=== PATIENT | female | born 1960 | race Caucasian/White ===

== ENCOUNTER → 2019-09-10 13:08 | Outpatient (CLI) | payer OTHER, SELFPAY ==
--- NOTE | 2019-09-10 13:11 | DI.US.S_ITS ---
PROCEDURE: US ABDOMEN COMPLETE INDICATIONS: POLYCYTHEMIA TECHNIQUE: Real-time scanning was performed of the abdominal and retroperitoneal organs, with image documentation. COMPARISON: None. FINDINGS: Liver: Liver is diffusely increased in echogenicity. No focal hepatic abnormalities identified. Normal hepatic size. Gallbladder: Paracolic cystectomy. Biliary ducts: Intrahepatic bile ducts are non-dilated. Extrahepatic bile duct not well-seen. Pancreas: Visualized portions of the pancreas are sonographically normal. Spleen: Spleen is normal in size and homogeneous in echotexture. Kidneys: Kidneys are normal in size and echotexture. Right kidney measures 11.7 cm long; left kidney measures 11.8 cm long. No hydronephrosis or nephrolithiasis. No solid masses. Aorta: Visualized aorta is normal in caliber at less than 3 cm. Iliacs: Not well-visualized. IVC: Intrahepatic inferior vena cava is patent. Miscellaneous: No free abdominal fluid. IMPRESSION: 1. Increased hepatic echogenicity noted possibly related to hepatic steatosis but other sources of hepatocellular disease cannot be excluded. Recommend clinical correlation. Dictated by: John Faulkner [facility] Interpreted: Juan Carlos Hankins MD on 09/10/2019 at 14:52 Approved by: Juan Carlos Hankins M.D. on 09/10/2019 at 17:23
== END ==
PROVIDERS: Visit Provider Internal Medicine Hematology & Oncology
DX: D75.1 Secondary polycythemia (principal)
CPT/HCPCS: 76700

== ENCOUNTER → 2019-11-24 09:59 | Outpatient (CLI) | payer OTHER, SELFPAY ==
[2019-11-24 10:16] LABS: Add Manual Diff / Slide Review NO; Basophils Absolute Auto 100 /uL (0-100); Basophils Percent Auto 1.3 % (0-2); Eosinophils Absolute Auto 500 /uL (0-450); Eosinophils Percent Auto 4.3 % (2-4); Hematocrit 53.9 % (36-46); Hemoglobin 17.6 g/dL (12.0-16.0); Lymphocytes Absolute Auto 1600 /uL (1100-4500); Lymphocytes Percent Auto 15.3 % (25-40); Mean Corpuscular HGB Conc 32.7 % (30-36); Mean Corpuscular Hemoglobin 28.5 PG (26-34); Mean Corpuscular Volume 87.3 fL (80-100); Monocytes Absolute Auto 600 /uL (0-900); Neutrophils Absolute Auto 7800 /uL (1500-7000); Neutrophils Percent Auto 73.1 % (50-75); Platelet Count 411 X10^3/uL (150-400); Red Blood Cell Count 6.17 X10^6/uL (4.0-5.2); White Blood Cell Count 10.7 X10^3/uL (4.5-11.0)
[2019-11-24 10:51] LABS: 585 Gram Check PASS; Dizziness NO; Postdiastolic BP 101; Postsystolic BP 145; Prediastolic 85; Presystolic 145; Pulse 90; Site of phlebotomy LAC; Swelling NO; Therapeutic Phleb Comment NO COMMENT; Zero Check Sebra Scale PASS
== END ==
PROVIDERS: Family Provider Internal Medicine; PCP Internal Medicine; Referring Provider Internal Medicine Hematology & Oncology; Visit Provider Internal Medicine Hematology & Oncology
DX: D45 Polycythemia vera (principal); D75.1 Secondary polycythemia
CPT/HCPCS: 36415; 85025; 99195

== ENCOUNTER → 2019-11-30 12:37 | Outpatient (CLI) | payer OTHER, SELFPAY ==
[2019-11-30 13:27] LABS: Add Manual Diff / Slide Review NO; Basophils Absolute Auto 200 /uL (0-100); Basophils Percent Auto 1.5 % (0-2); Eosinophils Absolute Auto 600 /uL (0-450); Eosinophils Percent Auto 5.1 % (2-4); Hematocrit 53.2 % (36-46); Hemoglobin 17.4 g/dL (12.0-16.0); Lymphocytes Absolute Auto 1500 /uL (1100-4500); Lymphocytes Percent Auto 12.6 % (25-40); Mean Corpuscular HGB Conc 32.8 % (30-36); Mean Corpuscular Hemoglobin 28.4 PG (26-34); Mean Corpuscular Volume 86.7 fL (80-100); Monocytes Absolute Auto 600 /uL (0-900); Monocytes Percent Auto 5.3 % (3-14); Neutrophils Absolute Auto 8900 /uL (1500-7000); Neutrophils Percent Auto 75.5 % (50-75); Platelet Count 465 X10^3/uL (150-400); Red Blood Cell Count 6.13 X10^6/uL (4.0-5.2); Red Cell Distribution Width 15.5 % (11.6-14.8); White Blood Cell Count 11.7 X10^3/uL (4.5-11.0)
[2019-11-30 13:35] LABS: Alanine Aminotransferase 19 IU/L (<35); Albumin 4.6 g/dL (3.5-5.0); Albumin Globulin Ratio 1.3 (1.0-2.8); Alkaline Phosphatase 107 U/L (38-126); Aspartate Aminotransferase 26 IU/L (14-36); BUN Creatinine Ratio 21.3 (6-22); Bilirubin Total 0.5 mg/dL (0.2-1.3); Blood Urea Nitrogen 17 mg/dL (7-17); Calcium 10.1 mg/dL (8.4-10.2); Carbon Dioxide 27 mmol/L (22-32); Chloride 105 mmol/L (98-107); Estimated Glomerular Filt Rate > 60.0 mL/min (>60); Globulin 3.5 g/dL (1.7-4.1); Glucose 108 mg/dL (80-110); HEMOLYSIS < 15 (0-50); Potassium 4.1 mmol/L (3.4-5.1); Sodium 142 mmol/L (137-145); Total Protein 8.1 g/dL (6.3-8.2)
== END ==
PROVIDERS: Family Provider Internal Medicine; PCP Internal Medicine; Referring Provider Internal Medicine Hematology & Oncology; Visit Provider Internal Medicine Hematology & Oncology
DX: D75.1 Secondary polycythemia (principal)
CPT/HCPCS: 36415; 80053; 85025

== ENCOUNTER → 2019-12-08 10:06 | Outpatient (CLI) | payer OTHER, SELFPAY ==
[2019-12-08 10:37] LABS: 585 Gram Check PASS; Prediastolic 77; Presystolic 126; Pulse 86; Zero Check Sebra Scale PASS
[2019-12-08 10:38] LABS: Dizziness NO; Postdiastolic BP 91; Postsystolic BP 134; Site of phlebotomy LAC; Swelling NO; Therapeutic Phleb Comment NO COMMENT
== END ==
PROVIDERS: Family Provider Internal Medicine; PCP Internal Medicine; Referring Provider Internal Medicine Hematology & Oncology; Visit Provider Internal Medicine Hematology & Oncology
DX: D45 Polycythemia vera (principal)
CPT/HCPCS: 99195

== ENCOUNTER → 2019-12-30 09:59 | Outpatient (CLI) | payer OTHER, SELFPAY ==
[2019-12-30 10:18] LABS: Hematocrit 41.4 % (36-46)
== END ==
PROVIDERS: Family Provider Internal Medicine; PCP Internal Medicine; Referring Provider Internal Medicine Hematology & Oncology; Visit Provider Internal Medicine Hematology & Oncology
DX: D45 Polycythemia vera (principal)
CPT/HCPCS: 36415; 85014

== ENCOUNTER → 2020-11-17 09:34 | Outpatient (CLI) | payer OTHER, SELFPAY ==
--- NOTE | 2020-11-17 09:35 | DI.US.S_ITS ---
PROCEDURE: US ABDOMEN COMPLETE INDICATIONS: POLYCYTHEMIA VERA - ?SPLENOMEGALY TECHNIQUE: Real-time scanning was performed of the abdominal and retroperitoneal organs, with image documentation. COMPARISON: [facility], US, US ABDOMEN COMPLETE, 09/10/2019, 13:20. FINDINGS: Liver: Liver is normal in size and homogeneous in echotexture. The main portal vein measures 14 mm, with normal appearing, hepatopetal flow. Gallbladder: Has been removed. Biliary ducts: Intrahepatic bile ducts are non-dilated. Extrahepatic bile duct caliber measures 4 mm. Normal is 6-7 mm or less in diameter, or 10 mm or less post-cholecystectomy. Pancreas: Visualized portions of the pancreas are sonographically normal. Spleen: Spleen is normal in size and homogeneous in echotexture, measuring 12.6 cm, with a calculated splenic volume of 368 cc. Kidneys: Kidneys are normal in size and echotexture. Right kidney measures 11.4 cm long; left kidney measures 12.8 cm long. No hydronephrosis or nephrolithiasis. No solid masses. Aorta: Visualized aorta is normal in caliber at less than 3 cm. Iliacs: Proximal common iliac arteries are normal in caliber at less than 2.5 cm. IVC: Intrahepatic inferior vena cava is patent. Miscellaneous: No free abdominal fluid. IMPRESSION: Spleen near the upper limits of normal for size. Status post cholecystectomy, without biliary dilatation. Dictated by: Gadiel Hernandez M.D. on 11/17/2020 at 10:10 Approved by: Gadiel Hernandez M.D. on 11/17/2020 at 10:11
== END ==
PROVIDERS: Family Provider Internal Medicine; PCP Internal Medicine; Referring Provider Internal Medicine Hematology & Oncology; Visit Provider Internal Medicine Hematology & Oncology
DX: D45 Polycythemia vera (principal); Z90.49 Acquired absence of other specified parts of digestive tract
CPT/HCPCS: 76700

== ENCOUNTER → 2022-05-28 09:29 | Outpatient (CLI) | payer OTHER, SELFPAY ==
[2022-05-28 11:15] LABS: COVID19 -Nasal RAPID Negative (Negative)
== END ==
PROVIDERS: Family Provider Internal Medicine; PCP Internal Medicine; Visit Provider Surgery
DX: Z20.822 Contact with and (suspected) exposure to COVID-19 (principal); Z01.812 Encounter for preprocedural laboratory examination
CPT/HCPCS: 87635; C9803

== ENCOUNTER 2022-05-29 09:54 | Day surgery (SDC) | payer OTHER, SELFPAY ==
[2022-05-29] VITALS (8 sets, daily range): BP systolic 118–155; BP diastolic 71–90; PULSE 72–101; RESP 12–21; TEMP 36.2–36.8; O2SAT 93–98; BMI 25.9
--- NOTE | 2022-05-29 | PATH_ITS ---
[facility] Accession Number: [id number] . 01 Material submitted: . rectum - RECTAL POLYP . 01 Diagnosis: Rectum, Polyp, Biopsy: Hyperplastic polyp. JNL 05/30/2022 1235 Local . 01 Electronically signed: . Mayte Hoang MD, Pathologist NPI- [id number] . 01 Gross description: . RECTAL POLYP: Received in formalin is 1 fragment(s) of christianson, soft tissue measuring 0.4 x 0.4 x 0.2 cm submitted entirely in 1 cassette(s) /CLAY 05/30/2022 0051 Local . 01 Pathologist provided ICD-10: K62.1 . 01 CPT . 491416 Specimen Comment: A courtesy copy of this report has been sent to [phone] Performed at: 01 [facility] [address] [place] [id number] MD David Perez MD Phone: [phone]
--- NOTE | 2022-05-29 10:08 | PM.HP.1 ---
History of Present Illness History of Present Illness Date Patient Seen: 05/29/22 Time Patient Seen: 10:08 Chief complaint: SDC Narrative: 62-year-old woman here for diagnostic colonoscopy secondary to a history of anemia. She is feeling well today without complaint. Please refer to the H& P from March 2022 for further detail. Patient History Medical History Anxiety Depression Hypertension Hypothyroidism Migraine SVT (supraventricular tachycardia) Surgical History History of History of carpal tunnel release of both wrists History of cholecystectomy History of radiofrequency ablation (RFA) procedure for cardiac arrhythmia History of tonsillectomy Family & Social History Family History Sister Multiple myeloma Mother Breast cancer Father Asthma Tobacco & Substance use: Smoking Status Former smoker alcohol intake former Meds Home Medications and Allergies Home Medications Medication Instructions Recorded Confirmed Type Vitamin D3 1,000 unit DAILY 08/13/19 05/07/22 History ascorbic acid (vitamin C) 1,000 mg 1,000 mg PO DAILY 08/13/19 05/29/22 History tablet,extended release (Vitamin C ER) carboxymethylcellulose sodium 0.5 1 drp DAILY 08/13/19 05/29/22 History % eye drops in a dropperette (Refresh Plus) levothyroxine 25 mcg tablet 25 mcg DAILY 08/13/19 05/29/22 History (Synthroid) lutein 20 mg capsule 20 mg PO DAILY 08/13/19 05/29/22 History rizatriptan 10 mg disintegrating 10 mg PO Q2-4H PRN Headache 08/13/19 05/29/22 History tablet (Maxalt-PROFESSIONAL ATHLETES COACH) thyroid (pork) 60 mg tablet 60 mg PO DAILY 08/13/19 05/29/22 History (Reading Thyroid) aspirin 81 mg chewable tablet 81 mg PO DAILY 08/08/20 05/29/22 History ibuprofen 600 mg tablet 600 mg PO Q6H PRN Pain, Mild 08/08/20 05/29/22 History potassium chloride 40 mEq/L in 365 meq DAILY 08/08/20 05/29/22 History dextrose 5 %-0.45 % sodium chloride IV topiramate 25 mg tablet 50 mg PO BID 08/08/20 05/29/22 History magnesium 500 mg tablet 15 mg PO DAILY 10/05/21 05/29/22 History vitamin K2 45 mcg capsule 90 mcg PO DAILY 12/28/21 05/07/22 History levocetirizine 5 mg tablet 5 mg PO DAILY 05/07/22 05/29/22 History Allergies Allergy/AdvReac Type Severity Reaction Status Date / Time codeine Allergy Unknown Verified 05/29/22 10:00 Exam Narrative Exam Narrative: General adult woman alert oriented no acute distress Chest nonlabored respiration Abdomen soft nontender nondistended Assessment & Plan Assessment and plan (1) Iron deficiency anemia: Qualifiers: Iron deficiency anemia type: unspecified iron deficiency Qualified Code(s): D50.9 - Iron deficiency anemia, unspecified Status: Acute Assessment & Plan narrative: 62-year-old woman with anemia here for diagnostic colonoscopy. Technical details of the operation were discussed. Operative risks including bleeding, infection, intestinal perforation, missed diagnosis were discussed. Questions have been answered and they are in agreement with this plan. Time Spent With Patient Critical Care time: I spent a total of [] minutes of critical care time on this patient's care today; this time is exclusive of procedural time.
[2022-05-29] MEDS: LACTATED RINGERS 1,000 ML 200 ML IV (10:18)
--- NOTE | 2022-05-29 10:52 | PM.OP.COLON ---
Operative Date/Time/Diagnoses Date of procedure: 05/29/22 Time of procedure: 10:52 Pre-op diagnosis: Anemia Post-op diagnosis: same Procedure & Clinicians Study performed: Colonoscopy Same procedure as scheduled: Yes Indications: Anemia Surgeon: Mustapha Green Procedure Notes Procedure in detail: Medications: Conscious sedation using 5mg IV midazolam and 150mcg IV of fentanyl The history and physical was performed/updated and the patient is ASA class is 2. The procedure was discussed in detail with the patient. Potential risks complications including infection, bleeding, missed diagnosis, perforation, need for surgery, and were explained. Their questions were answered and informed consent was obtained. Patient was brought to the procedure room and placed standard monitoring equipment. The patient's vital signs were monitored continuously throughout the entire procedure. Prior to starting time-out was performed. The patient was placed in the left lateral recumbent position. Procedural sedation was administered. Examination began with a thorough inspection of the perianal area there was no evidence of fissures, fistulae, external hemorrhoids or cutaneous malignancy. The colonoscopy scope was then placed into the anal canal and was advanced to the cecum, which was identified by the ileocecal valve, the appendiceal orifice and the confluence of the taenia. The scope was then slowly withdrawn examining colon thoroughly in all directions, irrigating it of any residual stool. FINDINGS 1. Rectal-5 mm polyp in the mid rectum removed with biopsy forceps 2. Tortuous colon 3. No colonic masses The patient tolerated the procedure well. They will be discharged once criteria are met. The prep was of good/excellent quality. The withdrawl time was 6 minutes. The sedation time was 24 minutes. Specimen(s): other (Rectal polyp) Complications: none Impression: Colonic polyp Post-procedure Recommendations: Colonoscopy in 5 years
[2022-05-29] MEDS: fentaNYL 250 MCG/5 ML INJ IV (10:54)
[2022-05-29] MEDS: MIDAZOLAM 5 MG/5 ML VIAL IV (10:54)
== END 2022-05-29 11:44 | disposition home or self-care (01) ==
PROVIDERS: Family Provider Internal Medicine; PCP Student in an Organized Health Care Education/Training Program; Referring Provider Surgery; Visit Provider Surgery
PROC: 0DJD8ZZ Inspection of Lower Intestinal Tract, Via Natural or Artificial Opening Endoscopic (ICD-10-PCS; CPT 45378; principal; 2022-05-29 10:30)
DX: D50.9 Iron deficiency anemia, unspecified (principal); K62.1 Rectal polyp
CPT/HCPCS: 45380; 99152; 99153; J2250; J3010

== ENCOUNTER 2022-07-06 07:04 | Emergency (ER) | payer OTHER, SELFPAY ==
[2022-07-06] VITALS (9 sets, daily range): BP systolic 121–177; BP diastolic 61–90; PULSE 82–90; RESP 18; TEMP 36.6; O2SAT 93–98; BMI 25.0
--- NOTE | 2022-07-06 07:29 | ED.HA ---
HPI - Headache General Chief Complaint: Headache Stated Complaint: migraine Time Seen by Provider: 07/06/22 07:16 Source: patient Mode of arrival: Ambulatory Limitations: no limitations History of Present Illness HPI Narrative: Patient is a 62-year-old female who is here with evaluation of a migraine headache. She has had migraine headaches in the past. She has been to the emergency department before for her headaches however has been several years ago. States that yesterday approximately 1100 hours in the morning she had the onset of the headache. It feels like 1 of her prior migraines. She does take a preventative migraine medication and also has abortive medicines as well. She took those yesterday and has not improved any of her symptoms. She is having subjective fevers. Has full body aches. No chest pain. No shortness of breath. Is having nausea but no vomiting. No rashes. No other neurologic symptoms. She did recently have an iron infusion for PCV. Also is having photophobia Related Data Home Medications Medication Instructions Recorded Confirmed Vitamin D3 1,000 unit DAILY 08/13/19 06/18/22 ascorbic acid (vitamin C) 1,000 mg 1,000 mg PO DAILY 08/13/19 06/18/22 tablet,extended release (Vitamin C ER) carboxymethylcellulose sodium 0.5 1 drp DAILY 08/13/19 06/18/22 % eye drops in a dropperette (Refresh Plus) levothyroxine 25 mcg tablet 25 mcg DAILY 08/13/19 06/18/22 (Synthroid) lutein 20 mg capsule 20 mg PO DAILY 08/13/19 06/18/22 rizatriptan 10 mg disintegrating 10 mg PO Q2-4H PRN Headache 08/13/19 06/18/22 tablet (Maxalt-UTILITY BILL COLLECTION CLERK) thyroid (pork) 60 mg tablet 60 mg PO DAILY 08/13/19 06/18/22 ([place] Thyroid) aspirin 81 mg chewable tablet 81 mg PO DAILY 08/08/20 06/18/22 ibuprofen 600 mg tablet 600 mg PO Q6H PRN Pain, Mild 08/08/20 06/18/22 potassium chloride 40 mEq/L in 365 meq DAILY 08/08/20 06/18/22 dextrose 5 %-0.45 % sodium chloride IV topiramate 25 mg tablet 50 mg PO BID 08/08/20 06/18/22 magnesium 500 mg tablet 15 mg PO DAILY 10/05/21 06/18/22 vitamin K2 45 mcg capsule 90 mcg PO DAILY 12/28/21 06/18/22 levocetirizine 5 mg tablet 5 mg PO DAILY 05/07/22 06/18/22 guaifenesin 600 mg tablet, 1,200 mg PO BID 06/18/22 06/18/22 extended release 12 hr (Mucinex) Allergies Allergy/AdvReac Type Severity Reaction Status Date / Time codeine Allergy Unknown Verified 05/29/22 10:00 Review of Systems Review of Systems ROS Unobtainable: All systems reviewed & are unremarkable except as noted in HPI and below Patient History Medical History Anxiety Depression Hypertension Hypothyroidism Migraine SVT (supraventricular tachycardia) Surgical History History of History of carpal tunnel release of both wrists History of cholecystectomy History of radiofrequency ablation (RFA) procedure for cardiac arrhythmia History of tonsillectomy Family History Sister Multiple myeloma Mother Breast cancer Father Asthma Social History household members: spouse Smoking Status: Former smoker alcohol intake: former substance use type: does not use Smoking Status: Former smoker Substance Use Type: does not use Exam Initial Vital Signs Initial Vital Signs: Vital Signs Temperature 97.8 F 07/06/22 07:05 Pulse Rate 89 07/06/22 07:05 Respiratory Rate 18 07/06/22 07:05 Blood Pressure 177/90 H 07/06/22 07:05 Pulse Oximetry 98 07/06/22 07:05 Oxygen Delivery Method 07/06/22 07:05 Const General: cooperative and comfortable HENMT Head: normal to inspection and normocephalic Resp Effort & Inspection: normal respiratory effort Auscultation: clear to auscultation bilaterally Cardio Rate: regular rate Rhythm: regular rhythm Heart Sounds: murmur GI Inspection: normal to inspection Skin General: no rashes or lesions noted Neuro General: patient alert, patient awake and moves all extremities Cognition: normal cognition Speech: speech normal Extrem General: normal to inspection, capillary refill normal and No edema Psych Appearance: grossly normal and well kempt Course Orders Ordered: Discontinued Medications Acetaminophen (Acetaminophen 325 Mg Tablet) 975 mg PO NOW ONE Stop: 07/06/22 07:33 Last Admin: 07/06/22 07:54 Dose: 975 mg Documented By: RB Diphenhydramine HCl (Diphenhydramine 50 Mg/Ml Vial) 25 mg IV NOW ONE Stop: 07/06/22 07:33 Last Admin: 07/06/22 07:53 Dose: 25 mg Documented By: RB Hydromorphone HCl (Hydromorphone 0.5 Mg Inj) 0.5 mg IV NOW ONE Stop: 07/06/22 10:36 Last Admin: 07/06/22 10:46 Dose: 0.5 mg Documented By: RB Sodium Chloride (Normal Saline 0.9%) 1,000 mls @ 1,000 mls/hr IV BOLUS ONE Stop: 07/06/22 08:31 Last Infusion: 07/06/22 09:56 Dose: 0 mls/hr Documented By: Admin: 07/06/22 07:53 Dose: 1,000 mls/hr Documented By: RB Ketorolac Tromethamine (Ketorolac 30 Mg/Ml Vial) 30 mg IV NOW ONE Stop: 07/06/22 09:25 Last Admin: 07/06/22 09:50 Dose: 30 mg Documented By: RB Metoclopramide HCl (Metoclopramide 10 Mg/2 Ml Inj) 10 mg IV NOW ONE Stop: 07/06/22 07:33 Last Admin: 07/06/22 07:53 Dose: 10 mg Documented By: RB Vital Signs Vital signs: Vital Signs - 8 hr 07/06/22 07:05 07/06/22 07:18 07/06/22 07:30 Temperature 97.8 F Pulse Rate 89 85 Respiratory Rate 18 Blood Pressure 177/90 H 156/74 H Pulse Oximetry 98 97 Oxygen Delivery Method Room Air 07/06/22 07:30 07/06/22 10:17 07/06/22 10:18 Temperature Pulse Rate 82 90 Respiratory Rate Blood Pressure 125/62 Pulse Oximetry 94 96 Oxygen Delivery Method 07/06/22 10:18 07/06/22 10:51 07/06/22 11:00 Temperature Pulse Rate 86 86 Respiratory Rate Blood Pressure 130/66 Pulse Oximetry 96 96 Oxygen Delivery Method 07/06/22 11:00 07/06/22 11:15 07/06/22 11:15 Temperature Pulse Rate 84 83 Respiratory Rate Blood Pressure 121/63 Pulse Oximetry 93 94 Oxygen Delivery Method MDM - Headache MDM Narrative Medical decision making narrative: Patient states she does feel better after above treatments. I have low suspicion for subarachnoid hemorrhage, meningitis or other acute surgical or infectious pathology given her history and physical. Will discharge her home and she did take her normal medications. She was given return precautions. She expressed understanding and agreement. Discharge Plan Departure Patient Disposition: Home Clinical Impression: Migraine Instructions: DI for Migraine Activity Restrictions/Additional Instructions: Recommend that you talk with your primary doctor about your headaches and continue to take all of your medications as directed. Return to the emergency department for any new or worsening symptoms. Prescriptions: No Action Vitamin C 1,000 mg Tablet Extended Release 1,000 mg PO DAILY levothyroxine [Synthroid] 25 mcg Tablet 25 mcg DAILY rizatriptan [Maxalt-UTILITY BILL COLLECTION CLERK] 10 mg Tablet,Disintegrating 10 mg PO Q2-4H PRN (Reason: Headache) carboxymethylcellulose sodium [Refresh Plus] 0.5 % Dropperette 1 drp DAILY lutein 20 mg Capsule 20 mg PO DAILY thyroid (pork) [[place] Thyroid] 60 mg Tablet 60 mg PO DAILY Vitamin D3 1,000 unit DAILY potassium [id number]%NaCl 40 mEq/L Parenteral Solution 365 meq DAILY topiramate 25 mg Tablet 50 mg PO BID aspirin 81 mg Tablet,Chewable 81 mg PO DAILY ibuprofen 600 mg Tablet 600 mg PO Q6H PRN (Reason: Pain, Mild) magnesium 500 mg Tablet 15 mg PO DAILY vitamin K2 45 mcg Capsule 90 mcg PO DAILY levocetirizine 5 mg Tablet 5 mg PO DAILY guaifenesin [Mucinex] 600 mg Tablet Extended Release 12hr 1,200 mg PO BID Referrals: Jaylan Suggs DO [Primary Care Provider] -
[2022-07-06] MEDS: diphenhydrAMINE 50 MG/ML VIAL 25 MG IV (07:53)
[2022-07-06] MEDS: METOCLOPRAMIDE 10 MG/2 ML INJ IV (07:53)
[2022-07-06] MEDS: SODIUM CHLORIDE 0.9% 1,000 ML 1000 ML IV (07:53)
[2022-07-06] MEDS: ACETAMINOPHEN 325 MG TABLET 975 MG PO (07:54)
[2022-07-06] MEDS: KETOROLAC 30 MG/ML VIAL IV (09:50)
[2022-07-06] MEDS: HYDROMORPHONE 0.5 MG INJ IV (10:46)
== END 2022-07-06 11:58 | disposition home or self-care (01) ==
PROVIDERS: Emergency Provider Emergency Medicine; Family Provider Internal Medicine; PCP Student in an Organized Health Care Education/Training Program
DX: G43.909 Migraine, unspecified, not intractable, without status migrainosus (principal)
CPT/HCPCS: 36415; 96361; 96374; 96375; 99284; J1170; J1200; J1885; J2765

== ENCOUNTER → 2023-04-02 13:45 | Outpatient (CLI) | payer MEDICARE, OTHER, SELFPAY ==
--- NOTE | 2023-04-02 | DI.RAD.S_ITS ---
PROCEDURE: FL BARIUM SWALLOW W SPEECH INDICATIONS: Unspecified foreign body in respiratory tract COMPARISON: None. TECHNIQUE: Examination was conducted in conjunction with speech pathology per standard protocol. In the lateral projection, filming was performed of the patient swallowing. AP projection filming may also be performed with patient swallowing. COMPARISON: FINDINGS: Function: The oral preparatory phase appears normal, with proper containment. The subsequent oral propulsive phase, pharyngeal phase, and esophageal phase of swallowing also appear normal with all proffered substances. No laryngotracheal penetration or aspiration. No pathologic vallecular pooling. Morphology: No cricopharyngeal bar is identified. No cervical esophageal webs. No Zenker's diverticulum. No strictures. IMPRESSION: Normal study. Please correlate with speech pathology notes. Dictated by: Juan Carlos Hankins M.D. on 04/02/2023 at 16:37 Approved by: Juan Carlos Hankins M.D. on 04/02/2023 at 16:37
--- NOTE | 2023-04-02 18:54 | ST.SWALLOW ---
Visit Care Team Role Provider Type Jaylan Suggs DO Primary Care Provider Non-Staff Specialty: Family Practice Address: [facility] [place], [address] Email: Brenda Baker DO Attending Provider Non-Staff Referring Provider Specialty: Medical Address: [address] [place] [address], [id number] Fax: Email: ST Modified Barium Swallow Study MANAGER [address] Modified Barium Swallow Study Start: 04/02/23 17:39 Freq: Status: Active Protocol: Document 04/02/23 17:40 LNK (Rec: 04/02/23 18:53 LNK [id number]) Modified Barium Swallow Study Total Time Visit Start Time 14:45 Visit Stop Time 15:15 Total Visit Minutes [address] Baker Reason for Referral chronic cough Setting Setting Outpatient Care Patient Information Identification Type Name,Date of Patient History Pt was seen for a Modified Barium Swallow Study secondary to chronic cough and respiratory problems over the past 4 years (since 2019). Pt reported that she has had a sensation of heaviness and struggles to breath when she eats/drinks. She stated there is an audible inhalation and exhalation and a gurgling sensation. Her cough is wet and she reports that recently she had a bronchoscopy where mucous was suctioned from her lungs, after which she felt better. She has a history of a hiatal hernia and funduplication. Subjective Observations Pt appeared to be anxious as she described her medical history. She was seated in the fluoroscopy chair. Directions and procedures were described for her. Pt agreed to proceed . Patient Positioning Position View Lat-A/P Imaging Lateral View Textures Administered Trials Presented Thin Liquid via Spoon (IDDSI 0 ),Thin Liquid via Cup (IDDSI 0 ),Extremely Thick Liquid via Spoon (IDDSI 4),Regular (IDDSI 7) Barium Tablet Yes The IDDSI Framework Protocol: IDDSI.1 Oral Impairment Source: The Modified Barium Swallow Impairment Profile (MBSImP??) Lip Closure No labial escape Tongue Control During Bolus Hold Cohesive bolus between tongue to palatal seal Bolus Preparation/Mastication Timely & efficient chewing & mashing Bolus Transport/Lingual Motion Brisk tongue motion Oral Residue Trace residue lining oral structures Location Tongue Initiation of Pharyngeal Swallow Bolus head at posterior angle of ramus (first hyoid excursion) Additional Oral Impairment Observations Pt's OME was observed to be WNL for form and function. DKS was also WNL. Oral phase o9f swallow was noted to be WNL Pharyngeal Impairment Source: The Modified Barium Swallow Impairment Profile (MBSImP??) Soft Palate Elevation No bolus between soft palate & pharyngeal wall Laryngeal Elevation Comp.sup.move.thyroid cart.w/ comp.approx.arytenoids to epiglot petiole Anterior Hyoid Excursion Complete anterior movement Epiglottic Movement Complete inversion Laryngeal Vestibular Closure Complete; no air/contrast in laryngeal vestibule Pharyngeal Stripping Wave Present - complete Pharyngoesophageal Segment Opening Complete distention & complete duration; no obstruction of flow Tongue Base Retraction Trace column of contrast/air between tongue base & post. pharyngeal wall Pharyngeal Residue Collection of residue within/ on pharyngeal structures Location Pyriform sinuses Additional Pharyngeal Impairment Pharyngeal phase of swallow Observations was observed to be WNL. Pharyngeal pooling was observed in the valeculla and the pyriform sinuses. Subsequent swallows following initial trial swallowing was observed to clear pharyngeal pooling. No laryngeal penetration or tracheal aspiration was observed. A/P View Textures Administered Trials Presented Thin Liquid via Spoon (IDDSI 0 ) The IDDSI Framework Protocol: IDDSI.1 A/P View Observations Pharyngeal Contraction Complete Esophageal Clearance Upright Position Complete clearance; esophageal coating Esophageal Function WFL Clinical Impressions Dysphagia Type WNL Findings pt presented with a swallow that was WNL Patient Appropriate for Therapy No Recommendations Diet Liquids Order Thin (IDDSI 0) Diet Order Regular (IDDSI 7) Medication Recommendation As Tolerated
== END ==
PROVIDERS: PCP Student in an Organized Health Care Education/Training Program; Referring Provider Internal Medicine Infectious Disease; Visit Provider Internal Medicine Infectious Disease
DX: T17.908A Unspecified foreign body in respiratory tract, part unspecified causing other injury, initial encounter (principal); Z87.01 Personal history of pneumonia (recurrent); Z98.890 Other specified postprocedural states; Z87.19 Personal history of other diseases of the digestive system
CPT/HCPCS: 74230; 92611

== ENCOUNTER → 2023-04-15 12:40 | Outpatient (CLI) | payer MEDICARE, OTHER, SELFPAY ==
--- NOTE | 2023-04-15 | DI.RAD.S_ITS ---
Bone Density Report Name: JOSÉ BRIZUELA Age: 63 Sex: Female Ethnicity: White Date of : 1960 Indication: postmenopausal; screening for osteoporosis; Referring Provider: MARYSOL HICKEY Study: Bone densitometry was performed. Exam Date: April 15, 2023 Accession number: [id number] Bone Density: Region BMD T-score Z-score Classification AP Spine(L1, L3, L4) 0.960 -0.8 0.9 Normal Femoral Neck (Left) 0.603 -2.2 -0.7 Osteopenia Total Hip (Left) 0.676 -2.2 -1.0 Osteopenia Femoral Neck (Right) 0.574 -2.5 -1.0 Osteoporosis Total Hip (Right) 0.678 -2.2 -0.9 Osteopenia Total Hip Mean 0.677 -2.2 -1.0 Osteopenia World Health Organization criteria for BMD impression classify patients as: Normal (T-score at or above -1.0), Osteopenia (T-score between -1.0 and -2.5), or Osteoporosis (T-score at or below -2.5). 10-year Fracture Risk: FRAX not reported because: Some T-score for Spine Total or Hip Total or Femoral Neck at or below -2.5 Impression: The patient has osteoporosis, based on the Right Femoral Neck T-score. Discussion: INCREASED RISK OF FRACTURE. BONE DENSITY IS UNDESIRABLY LOW AT ONE OR MORE SKELETAL SITES, CONSISTENT WITH POSTMENOPAUSAL OSTEOPOROSIS. This patient's lowest T-score meets the World Health Organization's (WHO) criteria for osteoporosis at one or more sites (T-score -2.5 or below). In untreated patients, the risk of osteoporotic fracture increases approximately two-fold for each 1.0 SD decrease in T-score. Low bone density is not the only risk factor for fracture; also consider factors such as patient's age, frailty or poor health, risk of falling, risk of injury, previous osteoporotic fracture, family history of osteoporosis, cigarette smoking, low body weight, etc. Not everyone with low bone mineral density has osteoporosis; osteomalacia and other metabolic bone disorders should also be considered. Patients who have osteoporosis should be evaluated for specific diseases and conditions (secondary causes) that may cause or contribute to bone loss. The [place] [employer]ocrinologists (AACE) and National Osteoporosis Foundation (NOF) recommend pharmacologic intervention for all postmenopausal women whose T-score is in this range. The patient should follow a healthful lifestyle (good nutrition with adequate calcium and vitamin D, and appropriate weight-bearing exercise). Follow-Up: Consider a repeat BMD and Vertebral Fracture Assessment (VFA) exam in 2 years or sooner if medically necessary, to reassess this patient's status. Reported by: JULIÁN YORK M.D. on 04/15/2023 1:08:00 PM.
== END ==
PROVIDERS: PCP Student in an Organized Health Care Education/Training Program; Referring Provider Student in an Organized Health Care Education/Training Program; Visit Provider Student in an Organized Health Care Education/Training Program
DX: N95.9 Unspecified menopausal and perimenopausal disorder (principal); M81.0 Age-related osteoporosis without current pathological fracture
CPT/HCPCS: 77080

== ENCOUNTER → 2023-04-29 11:12 | Outpatient (CLI) | payer MEDICARE, OTHER, SELFPAY ==
[2023-04-29 12:32] LABS: Add Manual Diff / Slide Review NO; Basophils Absolute Auto 300 /uL (0-100); Basophils Percent Auto 2.4 % (0-2); Eosinophils Absolute Auto 400 /uL (0-450); Eosinophils Percent Auto 2.8 % (2-4); Hematocrit 44.8 % (36-46); Lymphocytes Absolute Auto 1100 /uL (1100-4500); Lymphocytes Percent Auto 8.4 % (25-40); Mean Corpuscular HGB Conc 31.3 % (30-36); Mean Corpuscular Hemoglobin 24.2 PG (26-34); Mean Corpuscular Volume 77.3 fL (80-100); Monocytes Absolute Auto 600 /uL (0-900); Monocytes Percent Auto 4.4 % (3-14); Neutrophils Absolute Auto 11200 /uL (1500-7000); Platelet Count 352 X10^3/uL (150-400); Red Blood Cell Count 5.79 X10^6/uL (4.0-5.2); Red Cell Distribution Width 26.3 % (11.6-14.8); White Blood Cell Count 13.6 X10^3/uL (4.5-11.0)
[2023-04-29 12:55] LABS: Alanine Aminotransferase 23 IU/L (<35); Albumin Globulin Ratio 1.1 (1.0-2.8); Alkaline Phosphatase 111 U/L (38-126); Aspartate Aminotransferase 26 IU/L (14-36); BUN Creatinine Ratio 38.5 (6-22); Bilirubin Total 0.2 mg/dL (0.2-1.3); Blood Urea Nitrogen 15 mg/dL (7-17); Calcium 8.6 mg/dL (8.4-10.2); Carbon Dioxide 28 mmol/L (22-32); Chloride 103 mmol/L (98-107); Cholesterol 169 mg/dL (140-199); Estimated Glomerular Filt Rate > 60 mL/min (>60); Globulin 3.7 g/dL (1.7-4.1); Glucose 98 mg/dL (80-110); HDL Cholesterol 62 mg/dL (40-60); HEMOLYSIS < 15 (0-50); LDL Cholesterol Calculated 92 mg/dL (<100); Potassium 3.5 mmol/L (3.4-5.1); Sodium 137 mmol/L (137-145); Total Protein 7.7 g/dL (6.3-8.2); Triglycerides 74 mg/dL (35-150)
[2023-04-29 13:08] LABS: Anisocytosis 2+; Hypochromasia 1+; Microcytosis 1+; Ovalocytes 1+
[2023-04-29 15:01] LABS: Vitamin D 25 Hydroxy (D3) > 126 ng/mL (30.0-100.0)
[2023-04-29 15:45] LABS: HIV 1 & 2 Ab/Ag 4th Gen Combo NEGATIVE (NEGATIVE)
== END ==
PROVIDERS: PCP Student in an Organized Health Care Education/Training Program; Referring Provider Student in an Organized Health Care Education/Training Program; Visit Provider Student in an Organized Health Care Education/Training Program
DX: D45 Polycythemia vera (principal); Z13.220 Encounter for screening for lipoid disorders; Z13.21 Encounter for screening for nutritional disorder; Z11.59 Encounter for screening for other viral diseases; Z11.4 Encounter for screening for human immunodeficiency virus [HIV]
CPT/HCPCS: 36415; 80053; 80061; 82306; 85025; 87389; 87522

== ENCOUNTER → 2023-08-07 10:41 | Outpatient (CLI) | payer MEDICARE, OTHER, SELFPAY ==
--- NOTE | 2023-08-07 | DI.CT.S_ITS ---
PROCEDURE: CT CHEST WO CON INDICATIONS: Bronchiectasis, uncomplicated TECHNIQUE: Noncontrast 5 mm thick sections acquired from the pulmonary apices to the posterior costophrenic angles. 1 mm lung window, 5 mm thick coronal and sagittal and 7 mm axial MIP reformats were then acquired. For radiation dose reduction, the following was used: automated exposure control, adjustment of mA and/or kV according to patient size. COMPARISON: Outside Film, CT, CT CHEST WITHOUT CONTRAST, 07/17/2021, 10:25. Outside Film, CT, CT CHEST WITHOUT CONTRAST, 04/01/2019, 8:36. FINDINGS: Image quality: Excellent. Lungs and pleura: Mild consolidation can be seen involving the lung bases, left worse than right. Mild adjacent nodular opacities can be seen. Mild bronchiectasis can be seen, particularly involving the lower lungs. No pleural effusions or pneumothorax. Central and peripheral airways are patent and normal in caliber. Mediastinum: Heart size is normal. No pericardial effusion. Moderate coronary artery calcification is seen. No mediastinal adenopathy by size criteria. Thoracic aorta and central pulmonary arteries are normal in size. Esophagus is normal in caliber. There is a small hiatal hernia. Bones and chest wall: No suspicious bony lesions. Multiple levels of chronic anterior wedge1 deformity can be seen within the thoracic spine, with associated accentuated thoracic kyphosis. The appearance is similar to the prior. No acute fractures are seen. No axillary or supraclavicular adenopathy by size criteria. Thyroid gland demonstrates no significant noncontrast abnormality. Abdomen: Cholecystectomy clips are seen. Visualized upper abdominal solid organs and bowel loops appear normal in the absence of contrast. IMPRESSION: There is mild bronchiectasis seen, particularly involving the lower lungs. Mild dependent opacity can be seen involving the dependent lower lobes, left worse than right, with adjacent nodular opacity, particularly within the left lower lobe. Atelectasis with superimposed chronic infection is suspected. - Please consider short-term follow-up noncontrast chest CT in 1-2 months. Multiple levels of chronic thoracic spine anterior wedge deformity can be seen, with associated accentuated thoracic kyphosis. Additional findings: Moderate coronary artery calcification Small hiatal hernia Cholecystectomy Dictated by: Gadiel Hernandez M.D. on 08/07/2023 at 16:27 Approved by: Gadiel Hernandez M.D. on 08/07/2023 at 16:33
== END ==
PROVIDERS: PCP Student in an Organized Health Care Education/Training Program; Referring Provider Internal Medicine Pulmonary Disease; Visit Provider Internal Medicine Pulmonary Disease
DX: J47.9 Bronchiectasis, uncomplicated (principal); J98.11 Atelectasis; M40.294 Other kyphosis, thoracic region; I25.10 Atherosclerotic heart disease of native coronary artery without angina pectoris; K44.9 Diaphragmatic hernia without obstruction or gangrene; Z90.49 Acquired absence of other specified parts of digestive tract
CPT/HCPCS: 71250

== ENCOUNTER → 2023-08-28 11:39 | Outpatient (CLI) | payer MEDICARE, OTHER, SELFPAY ==
--- NOTE | 2023-08-28 | DI.RAD.S_ITS ---
PROCEDURE: XR CHEST 2V INDICATIONS: Other nonspecific abnormal finding of lung field TECHNIQUE: 2 views of the chest were acquired. COMPARISON: Outside Film, CR, XR CHEST 2 VIEWS, 06/27/2021, 15:36. [facility], CT, CT CHEST WO CON, 08/07/2023, 11:01. FINDINGS: Surgical changes and devices: None. Lungs and pleura: Bilateral interstitial prominence. No pleural effusions or pneumothorax. Mediastinum: Mediastinal contours are normal. Heart size is normal. Bones and chest wall: No suspicious bony abnormalities. Soft tissues appear unremarkable. IMPRESSION: No acute cardiopulmonary abnormality is seen. Chronic interstitial prominence suggesting interstitial lung disease. Dictated by: Aundrea Dumont M.D. on 08/28/2023 at 15:44 Approved by: Aundrea Dumont M.D. on 08/28/2023 at 15:55
== END ==
PROVIDERS: PCP Student in an Organized Health Care Education/Training Program; Referring Provider Internal Medicine Pulmonary Disease; Visit Provider Internal Medicine Pulmonary Disease
DX: R91.8 Other nonspecific abnormal finding of lung field (principal); J47.9 Bronchiectasis, uncomplicated
CPT/HCPCS: 71046; 87070; 87077; 87186; 87205

== ENCOUNTER → 2023-10-23 12:05 | Outpatient (CLI) | payer MEDICARE, OTHER, SELFPAY ==
--- NOTE | 2023-10-23 12:14 | DI.CT.S_ITS ---
PROCEDURE: CT CHEST WO CON INDICATIONS: Bronchiectasis, uncomplicated TECHNIQUE: Noncontrast 5 mm thick sections acquired from the pulmonary apices to the posterior costophrenic angles. 1 mm lung window, 5 mm thick coronal and sagittal and 7 mm axial MIP reformats were then acquired. For radiation dose reduction, the following was used: automated exposure control, adjustment of mA and/or kV according to patient size. COMPARISON: [facility], CT, CT CHEST WO CON, 08/07/2023, 11:01. FINDINGS: Image quality: Diagnostic. Lower Neck: No enlarged lymph nodes. Thyroid: No thyroid nodules which require sonographic follow up, per consensus guidelines. Axillae: No enlarged lymph nodes. Chest Wall: Unremarkable. Bones: Anterior wedging of multiple thoracic bodies. Lungs and Pleura: No pneumothorax or pleural effusions. There are new ground-glass and solid peribronchial nodules within the upper lobes and dependent tree-in-bud nodules within the lower lobes. Bronchial wall thickening is present. Heart: Heart size is enlarged. No pericardial effusion. Three-vessel coronary calcifications. Thoracic Vessels: The aorta and pulmonary arteries demonstrate normal size. Mediastinum and [place]: No enlarged lymph nodes. Esophagus: No wall thickening. No hiatal hernia. Upper Abdomen: Visualized upper abdomen solid organs and bowel loops appear normal. IMPRESSION: Upper lobe ground-glass and part solid peribronchial nodules in the upper lobes and dependent, tree-in-bud nodules within the lower lobes. Findings suggest infectious or inflammatory bronchiolitis. Given progress findings 08/07/2023, a chronic etiology such as aspiration is a consideration. Correlate with risk factors and consider speech pathology referral if positive. Marked coronary artery calcifications for age. Consider cardiology referral. Dictated by: Chuck Liao M.D. on 10/23/2023 at 13:09 Approved by: Chuck Liao M.D. on 10/23/2023 at 13:14
== END ==
PROVIDERS: PCP Student in an Organized Health Care Education/Training Program; Referring Provider Internal Medicine Pulmonary Disease; Visit Provider Internal Medicine Pulmonary Disease
DX: J47.9 Bronchiectasis, uncomplicated (principal); R91.8 Other nonspecific abnormal finding of lung field; I25.10 Atherosclerotic heart disease of native coronary artery without angina pectoris
CPT/HCPCS: 71250

== ENCOUNTER → 2024-03-25 12:15 | Outpatient (CLI) | payer MEDICARE, OTHER, SELFPAY ==
--- NOTE | 2024-03-25 12:16 | DI.CT.S_ITS ---
PROCEDURE: CT CHEST WO CON INDICATIONS: Bronchiectasis TECHNIQUE: Noncontrast 5 mm thick sections acquired from the pulmonary apices to the posterior costophrenic angles. 1 mm lung window, 5 mm thick coronal and sagittal and 7 mm axial MIP reformats were then acquired. For radiation dose reduction, the following was used: automated exposure control, adjustment of mA and/or kV according to patient size. COMPARISON: [facility], CT, CT CHEST WO CON, 10/23/2023, 12:14. FINDINGS: Image quality: Diagnostic. Lower Neck: No enlarged lymph nodes. Thyroid: No thyroid nodules which require sonographic follow up, per consensus guidelines. Axillae: No enlarged lymph nodes. Chest Wall: Unremarkable. Bones: Unremarkable. Lungs and Pleura: No pneumothorax or pleural effusions. Waxing and weaning areas of ground-glass and solid peribronchial nodules in the bilateral upper lobes. Persistent tree-in-bud nodularities in the lower lobes as well as bronchial wall thickening. Heart: Heart size is enlarged. No pericardial effusion. Triple-vessel coronary artery calcifications. Thoracic Vessels: The aorta and pulmonary arteries demonstrate normal size. Mediastinum and [place]: No enlarged lymph nodes. Esophagus: No wall thickening. No hiatal hernia. Upper Abdomen: Visualized upper abdomen solid organs and bowel loops appear normal. IMPRESSION: Waxing and waning upper lobe ground-glass and peribronchial nodules as well as persistent dependent tree-in-bud nodularity in the lower lobes. Findings are suggestive of infectious or inflammatory bronchiolitis. Approved by: Angela Osuna M.D.,Ph.D. on 03/26/2024 at 7:48
--- NOTE | 2024-03-25 12:16 | DI.CT.S_ITS ---
PROCEDURE: CT SINUS SCREEN WO CON INDICATIONS: Acute recurrent frontal sinusitis TECHNIQUE: Noncontrast 3.0 mm axial images acquired from the frontal sinuses to the mid-sella, with coronal and sagittal reformats. For radiation dose reduction, the following was used: automated exposure control, adjustment of mA and/or kV according to patient size. COMPARISON: [facility], CT, CT CHEST WO CON, 03/25/2024, 12:23. Outside Film, CT, CT SINUS WITHOUT CONTRAST, 08/07/2019, 9:49. FINDINGS: Image quality: Excellent. Maxillary Sinuses: No bony remodeling or destruction. Sinuses are clear. Ethmoid Air Cells: No bony remodeling or destruction. Sinuses are clear. Sphenoid Sinuses: No bony remodeling or destruction. Sinuses are clear. Frontal Sinuses: No bony remodeling or destruction. Sinuses are clear. Ostiomeatal Complexes: Prior left-sided antrectomy change can be seen. The right ostiomeatal complex is patent, yet is constitutionally narrowed and is further narrowed by soft tissue thickening. Miscellaneous: Visualized intra-orbital contents are normal. Bilateral homer bullosa are seen. There is been partial resection of the lateral aspect of the left middle turbinates. There is mild rightward nasal septal deviation. IMPRESSION: No significant active paranasal sinus disease can be seen. Prior postoperative change can be seen on the left, with left-sided antrectomy. Dictated by: Gadiel Hernandez M.D. on 03/25/2024 at 12:36 Approved by: Gadiel Hernandez M.D. on 03/25/2024 at 12:38
== END ==
PROVIDERS: PCP Student in an Organized Health Care Education/Training Program; Referring Provider Internal Medicine Pulmonary Disease; Visit Provider Internal Medicine Pulmonary Disease
DX: J01.11 Acute recurrent frontal sinusitis (principal); J47.9 Bronchiectasis, uncomplicated; I25.10 Atherosclerotic heart disease of native coronary artery without angina pectoris; R91.1 Solitary pulmonary nodule
CPT/HCPCS: 70486; 71250